=== PATIENT | male | born 1960 | race Caucasian/White ===

== ENCOUNTER 2016-06-13 19:26 | Emergency (ER) | payer OTHER ==
[2016-06-13 20:31] VITALS: RESP 18; TEMP 98.7
--- NOTE | 2016-06-13 21:29 | ED ---
General Adult HPI - General Chief complaint: Back Pain/Injury Stated complaint: back pain Time Seen by Provider: 06/13/16 20:52 Source: patient, family, RN notes reviewed, old records reviewed Mode of arrival: wheelchair Limitations: no limitations - History of Present Illness Initial comments: Chief complaint history of present illness a 55-year-old male who has pain in his right paralumbar region without significant radiation occasionally gets pain comes around the front down toward the right groin. His doctors general surgeon about this pain because he had left and right inguinal hernias plus and umbilical hernia repaired laparoscopically in December. This pain started approximately 3-1/2-4 months after the surgery. He talked his family physician about as a possibility of a kidney stone the urine apparently was clean no signs of blood. Patient denies any injuries. He also reports no bowel movement for 2 days. He had been on Ultram several times and one [place] lately but otherwise no narcotics. - Related Data Home Medications Medication Instructions Recorded Confirmed Aspirin [Adult Low Dose Aspirin EC] 81 mg PO DAILY 12/24/15 06/13/16 traMADol HCl [Ultram] 50 mg PO Q6H PRN 06/13/16 06/13/16 Previous Rx's Medication Instructions Recorded Ibuprofen [Motrin] 800 mg PO Q8HR PRN #20 tab 06/13/16 Orphenadrine [Norflex] 100 mg PO Q12H #10 tablet.er 06/13/16 methylPREDNISolone Dose Pack 4 mg PO DIRECTED #21 package 06/13/16 [Medrol Dose Pack] Allergies Allergy/AdvReac Type Severity Reaction Status Date / Time No Known Allergies Allergy Verified 06/13/16 20:26 Review of Systems ROS Statement: Those systems with pertinent positive or pertinent negative responses have been documented in the HPI. Review of systems no visual acuity or headache no chest pain or shortness of breath. Appetite has decreased somewhat. States no bowel movement for 2 days, which is not usual for him. Right paralumbar pain does not radiate to the buttock. He does have discomfort to his right testicular area sometimes. All systems were otherwise reviewed. Past medical problems significant for surgery only otherwise no medical problems. He's had tonsillectomy appendectomy and hernia repair as noted above. Family history sister had cancer his mother had multiple myeloma. She denies ALLERGIES she does smoke marijuana once daily advised that this may cause problems. Also denies alcohol use ROS Other: All systems not noted in ROS Statement are negative. Past Medical History Additional Past Medical History / Comment(s): varicose veins, History of Any Multi-Drug Resistant Organisms: None Reported Past Surgical History: Appendectomy, Hernia Repair, Tonsillectomy Past Anesthesia/Blood Transfusion Reactions: No Reported Reaction Past Psychological History: No Psychological Hx Reported Smoking Status: Current every day smoker Past Alcohol Use History: Occasional Additional Past Alcohol Use History / Comment(s): smokes 1/2 PPD for 30 yrs Past Drug Use History: Marijuana - Past Family History Sister(s) Family Medical History: Cancer General Exam - General Exam Comments Initial Comments: General: The patient is awake and alert, mild discomfort only when laying flat. Hard to sleep because of low back pain on the right side. Vital signs show temperature 98.7 pulse 74 story rate 18 pulse ox 97% room air blood pressure 142/83. Elevated systolic diastolic noted patient is in pain. He will be following up with his family physician. Eye: Pupils are equal, round and reactive to light, extra-ocular movements are intact ; there is normal conjunctiva bilaterally. No signs of icterus. Ears, nose, mouth and throat: There are moist mucous membranes Neck: The neck is supple, there is no tenderness Cardiovascular: There is a regular rate and rhythm. No murmur, rub or gallop is appreciated. Respiratory: Lungs are clear to auscultation, respirations are non-labored, breath sounds are equal. No wheezes, stridor, rales, or rhonchi. Gastrointestinal: Soft, non-distended, non-tender abdomen without masses or organomegaly noted. There is no rebound or guarding present. Back: Patient points to the mid lumbar area on the right side with discomfort radiates just the top of the iliac crest and goes no further. Also complains discomfort and pain sometimes radiates into the right scrotum. Palpation of the abdomen does not show any evidence of hernia. The patient recently had repair of left and right inguinal hernias and umbilical hernia the laparoscopic approach. Musculoskeletal: Normal ROM, no tenderness, There is no pedal edema. There is no calf tenderness or swelling. Sensation intact. Pulses equal bilaterally 2+. Neurological: No neuro deficits. No foot drop. Leg lift test pain with the patient lifting his own leg but no pain with passive raising of the leg. Appears more to be muscular Skin: Skin is warm and dry and no rashes or lesions are noted. Limitations: no limitations Course Vital Signs 06/13/16 20:26 Temperature 98.7 F Pulse Rate 74 Respiratory 18 Rate Blood Pressure 142/83 O2 Sat by Pulse 97 Oximetry Medical Decision Making - Medical Decision Making X-ray lumbosacral spine was done and reviewed by radiologist his impression is there are 5 lumbar type vertebral bodies identified. The lumbar spine shows satisfactory alignment without evidence of acute fracture dislocation. Mild wedge compression deformity of L1 vertebra most likely a chronic change. No definite acute fracture is noted in the lumbar spine. The oblique images appear within normal limits. The overlying soft tissues appear unremarkable. There is mild local scoliosis. Mild and placed spondylosis is noted in the lumbar spine. Spina bifida occulta is noted in the S1 vertebra. Moderate fecal material and gases noted in the colonic bowel loops. Impression; no acute fracture dislocation is seen in the lumbar spine. Mild degenerative changes in the lumbar spine. Moderate fecal material in the colon. As read by Dr. Jaquez X-ray of the abdomen was done and reviewed by radiologist his findings are lung bases are clear. No evidence for free intraperitoneal air. No dilated small bowel or air filled fluid levels. Scattered air and stool seen throughout the colon extending distally into the rectum. No suspicious calcifications identified. There is no free intraperitoneal air. No air-fluid levels are seen within the bowel. Air is seen in the nondilated loops of the large and small bowel. There is a nonspecific, nonobstructive bowel gas pattern. No suspicious calcifications are seen. There is no pneumatosis, portal venous gas , or mass effect. Impression no evidence of bowel obstruction or free intraperitoneal air as read by Dr. Jaquez I relayed to the patient the findings of the radiologist. Suggestion was that he get a pain shot here put on pain medications but not narcotics because is causing constipation. An MRI will be suggested for evaluation of right paralumbar radiculopathy. In the meanwhile the patient will be placed on Medrol Dosepak Disposition Clinical Impression: Right sided sciatica Disposition: HOME SELF-CARE Condition: Stable Instructions: Acute Low Back Pain (ED), Sciatica (ED), Lumbar Radiculopathy (ED ) Additional Instructions: Take medications as directed. Follow-up with your family physician. He may need an MRI for further evaluation of the area in question. Take ibuprofen 800 mg every 8 hours. Medrol Dosepak as directed. Use mag citrate for constipation. Prescriptions: Ibuprofen [Motrin] 800 mg PO Q8HR PRN #20 tab PRN Reason: Pain Orphenadrine [Norflex] 100 mg PO Q12H #10 tablet.er methylPREDNISolone Dose Pack [Medrol Dose Pack] 4 mg PO DIRECTED #21 package Time of Disposition: 22:58
--- NOTE | 2016-06-13 22:11 | XR ---
EXAMINATION TYPE: XR abdomen 2V DATE OF EXAM: 06/13/2016 10:03 PM CLINICAL DATA: , H COMPARISON: None. TECHNIQUE: 3 radiographs of abdomen were obtained in frontal supine and upright positions. FINDINGS: Lung bases are clear. No evidence for free intraperitoneal air. No dilated small bowel or air-fluid levels. Scattered air and stool seen throughout the colon extendi ng distally into the rectum. No suspicious calcifications identified. There is no free intraperitoneal air. No air fluid levels are seen within the bowel. Air is seen in nondilated loops of large and small bowel. There is a nonspecific, nonobstructive bowel gas pattern. No suspicious calcifications are seen. There is no pneumatosis, portal venous gas, or mass-effect. IMPRESSION: 1. No evidence of bowel obstruction or free intraperitoneal air.
--- NOTE | 2016-06-13 22:15 | XR ---
EXAMINATION TYPE: XR lumbosacral spine min 4V DATE OF EXAM: 06/13/2016 10:06 PM CLINICAL HISTORY: Patient had hernia surgery and now having constipation back pain. TECHNIQUE: Frontal, lateral, and oblique images of the lumbar spine are obtained. COMPARISON: None FINDINGS: There are 5 lumbar type vertebral bodies identified. The lumbar spine shows satisfactory alignment without evidence of acute fracture or dislocation. Mild wedge compression deformity of L1 v ertebra is most likely a chronic change. No definite acute fracture is noted in the lumbar spine. The oblique images appear within normal limits. The overlying soft tissue appears unremarkable. There i s mild levoscoliosis. Mild endplate spondylosis is noted in the lumbar spine. Spina bifida occulta is noted in the S1 vertebra. Moderate fecal material and gas is noted in the colonic bowel loops. IMPRESSION: No acute fracture or dislocation is seen in the lumbar spine. Mild degenerative changes in the lumbar spine. Moderate fecal material in the colon.
[2016-06-13] MEDS ORDERED: HYDROmorphone 1 MG/ML 1 ML SYRINGE IM STA (22:53)
[2016-06-13] MEDS ORDERED: MAGNESIUM CITRATE 296 ML BOTTLE PO ONE (22:53)
[2016-06-13] MEDS ORDERED: CYCLOBENZAPRINE 10 MG TAB PO STA (22:58)
[2016-06-13 23:04] LABS: Appearance,Urine Clear (Clear); Bilirubin,Urine Negative (Negative); Glucose,Urine (UA) Negative (Negative); Ketones,Urine Negative (Negative); Leukocyte Esterase,Urine Negative (Negative); Nitrite,Urine Negative (Negative); Protein,Urine Negative (Negative); Specific Gravity,Urine 1.021 (1.001-1.035); UA Billing (MACRO vs. MICRO) CHEM; Urobilinogen,Urine <2.0 mg/dL (<2.0)
--- NOTE | 2016-06-14 00:02 | CT ---
EXAMINATION TYPE: CT lumbar spine wo con DATE OF EXAM: 06/13/2016 11:37 PM COMPARISON: Lumbosacral spine x-rays 06/13/2016. HISTORY: back pain/constipation CT DLP: 581.40 mGycm Automated exposure control for dose reduction was used. Unenhanced CT of the lumbar spine was performed. Bone and soft tissue window settings are submitted as well as coronal and sagittal reconstructions. Minor multilevel degenerative changes are present in the lumbar spine with minor multilevel endplate spondylosis. Minor wedge compression deformity of L1 vertebra is most likely old. No definite acute fracture is noted in the lumbar spine. Paraspinal soft tissues appear grossly unremarkable. Mild atherosclerotic calcification is noted in t he abdominal aorta and iliac arteries. Visualized bilateral kidneys appear grossly unremarkable. L1-L2: Normal disc space height. No disc herniation protrusion or central stenosis. No facet joint arthropathy. No evidence for foraminal encroachment. L2-L3: There is moderate broad-based disc bulging with narrowing of neural foramina on either side an d mild canal narrowing. Mild facet joint arthrosis is noted. L3-L4: There is moderate broad-based disc bulging with mild narrowing of neural foramina on either si de and mild canal narrowing. Mild facet joint arthrosis is noted. L4-L5: There is mild mild to moderate broad-based disc bulging with mild narrowing of neural foramina on either side. Mild canal narrowing is noted. Mild facet joint arthrosis is present. L5-S1: There is moderate broad-based disc bulging with mild to moderate central disc herniation or di sc protrusion with indentation of anterior subarachnoid space and thecal sac. There is mild narrowing of neural foramina on either side. Mild canal narrowing is suggested. IMPRESSION: 1. No definite acute fracture is noted in the lumbar spine. 2. Multilevel degenerative disc disease changes as described above worse at the level of L5-S1 with mild to moderate central disc herniation or disc protrusion. A clinical correlation and follow-up is recommended.
[2016-06-14 00:34] VITALS: BP 132/69; PULSE 65
[2016-06-14] MEDS ORDERED: DEXAMETHASONE SOD PHOSPHATE 10 MG/ML 1 ML VIAL IM STA (00:42)
== END 2016-06-14 00:50 | disposition home or self-care (01) ==
LOC: EC 19:26
DX: M54.31 Sciatica, right side (principal); Z79.82 Long term (current) use of aspirin; F17.200 Nicotine dependence, unspecified, uncomplicated; N50.811 Right testicular pain
CPT/HCPCS: 96372 ×2; 99284; 81003; 87086; 72110; 74020; 72131; J1100; J1170